=== PATIENT | male | born 1955 | race Caucasian/White ===

== ENCOUNTER → 2017-06-11 | Outpatient (CLI) | payer BC, SELFPAY | PROVIDERS: Family Provider Family Medicine; Visit Provider Family Medicine | DX: R07.89 Other chest pain (principal) | CPT/HCPCS: 71020; 71100 ==

== ENCOUNTER 2017-06-27 19:22 | Emergency (ER) | payer BC, SELFPAY ==
--- NOTE | 2017-06-27 09:41 | CT_ITS ---
CT angio chest HISTORY: ITS.REASON: RT SIDED CHEST PAIN, PNEUMONIA ORDERING PHYSICIAN: Sammy Dubose MD PATIENT AGE: 61 years TECHNIQUE: Helical acquisition obtained following the bolus administration of 75 mL of Isovue 370 followed by a saline bolus. Axial, sagittal, and coronal reformatted images are generated and reviewed. COMPARISON: None FINDINGS: PULMONARY ARTERIES:There are bilateral pulmonary emboli present involving the left lower lobe, branch emboli the left upper lobe, branch embolus in the upper lingular segment, right lower lobe embolus extending into several branches, small emboli in the posterior right upper lobe AORTA:No acute finding. No thoracic aortic aneurysm or dissection evident LUNGS:Mild bibasilar atelectasis with mild bronchial thickening centrally PLEURAL SPACES:No significant effusion. No evidence of pneumothorax. HEART:Unremarkable. Normal heart size. No significant pericardial effusion. MEDIASTINAL AND HILAR STRUCTURES:No mediastinal or hilar mass evident. No dominant adenopathy. BONY STRUCTURES:No acute bony abnormalities apparent LYMPH NODES:No enlarged lymph nodes evident UPPER ABDOMEN:Fatty changes of the liver IMPRESSION: 1. Bilateral multiple small pulmonary emboli 2. Mild bibasilar atelectasis
--- NOTE | 2017-06-27 09:42 | XR_ITS ---
XR chest 2V HISTORY: Right-sided chest pain ITS.REASON: RT SIDED CHEST PAIN, PNEUMONIA ORDERING PHYSICIAN: Sammy Dubose MD PATIENT AGE: 61 years COMPARISON: None available FINDINGS: The cardiomediastinal silhouette and pulmonary vascularity are within normal limits. No lobar consolidation or collapse. Minimal blunting of the right CP angle.. No acute bony abnormalities. IMPRESSION: Minimal blunting right CP angle otherwise negative chest
[2017-06-27 19:28] VITALS: BP 173/107; PULSE 78; RESP 24; TEMP 36.7; O2SAT 94; BMI 35.3
--- NOTE | 2017-06-27 20:40 | PC.NURSE ---
o2 turned off for room air sat
--- NOTE | 2017-06-27 21:00 | PC.NURSE ---
BP 141/82, HR 62, Resp 20, o2 sat 95% on room air
[2017-06-27 23:25] VITALS: BP 148/84; PULSE 84; RESP 20; TEMP 37.1; O2SAT 96
[2017-06-27 23:54] LABS: Lactic Acid 1.6 mmol/L (0.4-2.0)
[2017-06-28 00:01] LABS: Anion Gap 11.8 mEq/L (5-15); Blood Urea Nitrogen 18 mg/dL (7-18); Carbon Dioxide 28 mmol/L (21.0-32.0); Chloride 103 mmol/L (98-107); Creatinine,Serum 1.08 mg/dL (0.70-1.30); Estimated Glomerular Filt Rate > 60 ml/min (>60); GFR (African American) > 60 ML/MIN (>60); Glucose 150 mg/dL (74-106); Potassium 3.8 mmoL/L (3.5-5.1); Sodium 139 mmol/L (136-145); Troponin I 0.04 ng/ml (0.00-0.06)
[2017-06-28 01:04] LABS: Basophils % 0.5 % (0.1-2.0); Eosinophils % 1.7 % (0.1-12.0); Hematocrit 45.5 % (42.0-52.0); Lymphocytes # 1.5 K/mm3 (0.7-4.5); Lymphocytes % 16.8 K/mm3 (10-50); Mean Corpuscular HGB Conc 32.9 g/dL (31.8-35.4); Mean Corpuscular Hemoglobin 29.2 pg (27.0-31.2); Mean Corpuscular Volume 88.7 fl (80-94); Mean Platelet Volume 7.7 fl (7.4-10.4); Monocytes # 0.6 K/mm3 (0.1-1.0); Monocytes % 6.6 % (1.7-9.3); Neutrophils # 6.6 K/mm3 (1.8-7.8); Neutrophils % 73.5 % (37.0-80.0); Platelet Count 204 K/mm3 (142-424); Red Blood Count 5.13 M/mm3 (4.60-6.20); Red Cell Distribution Width 12.6 % (11.5-17.5)
[2017-06-28 01:05] LABS: Basophils # 0.1 K/mm3 (0-0.2); Eosinophils # 0.2 K/mm3 (0.0-0.4)
--- NOTE | 2017-06-29 12:01 | PC.NURSE ---
All late documentation entered was per down time procedure
[2017-06-29 15:25] LABS: Anti-Thrombin III Antigen 102 % (72-124); Protein S Antigen, Total 114 % (60-150)
[2017-06-30 10:10] LABS: Anti-Cardio Antibody IgM 11 MPL U/mL (0-12); Anti-Cardiolipin Antibody IgG 26 GPL U/mL (0-14); Anticardiolipin Ab,IgA,Qn 16 APL U/mL (0-11)
[2017-07-02 17:09] LABS: Protein C Antigen 92 % (60-150)
== END 2017-06-27 23:25 | disposition home or self-care (01) ==
LOC: ER 22:30
PROVIDERS: Emergency Medicine; Emergency Provider Emergency Medicine; Family Provider Family Medicine; PCP Family Medicine
DX: I26.99 Other pulmonary embolism without acute cor pulmonale (principal); J98.11 Atelectasis
CPT/HCPCS: 36415; 71046; 71275; 80048; 83605; 84484; 85025; 85301; 85302; 85305; 86147; 87040; 87275; 87276; 96372; 99282; 99284

== ENCOUNTER → 2017-06-28 13:32 | Outpatient (CLI) | payer BC, SELFPAY ==
--- NOTE | 2017-06-28 13:40 | NVE_ITS ---
Venous Exam Indications: 415.19 Other pulmonary embolism and infarction. IMPRESSIONS 1. There is no evidence of significant Reflux. 2. No evidence of deep or superficial vein thrombosis involving the right lower extremity and left lower extremity Complete lower extremity venous duplex evaluation. Doppler flow study including spectral analysis, color and adhikari scale imaging. Location: Vascular laboratory. Patient status: Outpatient. Tables: Venous flow and imaging: + +-------+ + Location Overall Flow properties + +-------+ + Right common femoral Patent Normal phasicity; spontaneous; normal augmentation; compressible + +-------+ + Right saphenofemoral junction Patent Compressible + +-------+ + Right profunda femoral Patent Compressible + +-------+ + Right femoral Patent Normal phasicity; spontaneous; normal augmentation; compressible; no reflux + +-------+ + Right greater saphenous Patent Normal phasicity; spontaneous; normal augmentation; compressible + +-------+ + Right popliteal Patent Normal phasicity; spontaneous; normal augmentation; compressible + +-------+ + Right posterior tibial Patent Compressible + +-------+ + Right peroneal Patent Compressible + +-------+ + Right gastrocnemius Patent Compressible + +-------+ + Right soleal Patent Compressible + +-------+ + Left common femoral Patent Normal phasicity; spontaneous; normal augmentation; compressible + +-------+ + Left saphenofemoral junction Patent Compressible + +-------+ + Left profunda femoral Patent Compressible + +-------+ + Left femoral Patent Normal phasicity; spontaneous; normal augmentation; compressible + +-------+ + Left greater saphenous Patent Normal phasicity; spontaneous; normal augmentation; compressible + +-------+ + Left popliteal Patent Normal phasicity; spontaneous; normal augmentation; compressible +--------
== END ==
PROVIDERS: PCP Family Medicine; Visit Provider Family Medicine
DX: I26.99 Other pulmonary embolism without acute cor pulmonale (principal)
CPT/HCPCS: 93970

== ENCOUNTER → 2019-06-19 11:00 | Outpatient (CLI) | payer BC, SELFPAY ==
[2019-06-19 11:35] VITALS: PULSE 54; PULSE 58
== END ==
PROVIDERS: PCP Family Medicine; Visit Provider Family Medicine
DX: R06.02 Shortness of breath (principal)
CPT/HCPCS: 94060; 94640

== ENCOUNTER → 2020-12-28 11:00 | Outpatient (CLI) | payer BC, SELFPAY ==
--- NOTE | 2020-12-28 11:20 | XR_ITS ---
PROCEDURE INFORMATION: Exam: XR Right Shoulder Exam date and time: 12/28/2020 11:20 AM Age: 65 years old Clinical indication: Pain; Shoulder; Right; Additional info: Pain in right shoulder TECHNIQUE: Imaging protocol: XR Right shoulder. Views: 2 or more views. COMPARISON: CR CXR2V XR chest 2V 06/27/2017 8:00 PM FINDINGS: Bones/joints: There is no evidence of acute fracture. There is no evidence of joint malalignment or dislocation. Soft tissues: There are no soft tissue masses or fluid collections. IMPRESSION: 1. No evidence of acute fracture. 2. No evidence of acute dislocation.
--- NOTE | 2020-12-28 11:20 | XR_ITS ---
PROCEDURE INFORMATION: Exam: XR Left Knee Exam date and time: 12/28/2020 11:20 AM Age: 65 years old Clinical indication: Pain; Knee; Left; Additional info: Pain in left knee TECHNIQUE: Imaging protocol: XR Left knee. Views: 3 views. COMPARISON: US CA venous doppler LE BI 06/28/2017 1:53 PM FINDINGS: Bones/joints: There is no evidence of acute fracture. There is no evidence of joint malalignment or dislocation. There are mild degenerative changes of the knee joint, predominantly involving the medial joint compartment. Soft tissues: There are no soft tissue masses or fluid collections. IMPRESSION: 1. No evidence of acute fracture. 2. No evidence of acute dislocation. 3. There are mild degenerative changes of the knee joint, predominantly involving the medial joint compartment.
--- NOTE | 2020-12-28 11:20 | XR_ITS ---
PROCEDURE INFORMATION: Exam: XR Right Knee Exam date and time: 12/28/2020 11:20 AM Age: 65 years old Clinical indication: Pain; Knee; Right; Additional info: Pain in right knee TECHNIQUE: Imaging protocol: XR Right knee. Views: 3 views. COMPARISON: US CA venous doppler LE BI 06/28/2017 1:53 PM FINDINGS: Bones/joints: There are mild degenerative changes of the knee joint, predominantly involving the medial joint compartment. There is no evidence of acute fracture. There is no evidence of joint malalignment or dislocation. Soft tissues: There are no soft tissue masses or fluid collections. IMPRESSION: 1. There are mild degenerative changes of the knee joint, predominantly involving the medial joint compartment. 2. No evidence of acute fracture. 3. No evidence of acute dislocation.
--- NOTE | 2020-12-28 11:21 | XR_ITS ---
PROCEDURE INFORMATION: Exam: XR Left Shoulder Exam date and time: 12/28/2020 11:21 AM Age: 65 years old Clinical indication: Pain; Shoulder; Left; Additional info: Pain in left shoulder TECHNIQUE: Imaging protocol: XR Left shoulder. Views: 2 or more views. COMPARISON: CR CXR2V XR chest 2V 06/27/2017 8:00 PM FINDINGS: Bones/joints: There is no evidence of acute fracture. There is no evidence of joint malalignment or dislocation. Soft tissues: There are no soft tissue masses or fluid collections. IMPRESSION: 1. No evidence of acute fracture. 2. No evidence of acute dislocation.
== END ==
PROVIDERS: PCP Family Medicine; Visit Provider Family Medicine
DX: M25.562 Pain in left knee (principal); M25.561 Pain in right knee; M25.512 Pain in left shoulder; M25.511 Pain in right shoulder
CPT/HCPCS: 73030; 73562

== ENCOUNTER → 2022-02-17 13:13 | Outpatient (CLI) | payer BC, SELFPAY ==
--- NOTE | 2022-02-17 13:19 | XR_ITS ---
FINAL REPORT CLINICAL HISTORY: CAUTE RIGHT SIDED LOW BACK PAIN WITHOUT SCIATICA FINDINGS: LUMBAR SPINE Five views demonstrate no acute fracture. There are moderate degenerative changes with small osteophytes. Note is made of vascular calcification. There is no malalignment. IMPRESSION: Moderate degenerative changes with no acute process. Reviewed, Interpreted and Dictated by Raphael Pineda III, MD Transcribed by Alejandra Bolanos Authenticated and [facility]
== END ==
PROVIDERS: PCP Family Medicine; Visit Provider Family Medicine
DX: M54.50 Low back pain, unspecified (principal)
CPT/HCPCS: 72110

== ENCOUNTER → 2022-11-13 09:21 | Outpatient (CLI) | payer BC, MEDICARE, SELFPAY | PROVIDERS: PCP Family Medicine; Visit Provider Family Medicine | DX: R06.02 Shortness of breath (principal) | CPT/HCPCS: 93306 ==

== ENCOUNTER 2023-10-08 10:47 | Emergency (ER) | payer BC, MEDICARE, SELFPAY ==
[2023-10-08] VITALS (7 sets, daily range): BP systolic 109–134; BP diastolic 55–73; PULSE 80–89; RESP 18; TEMP 36.9–37.1; O2SAT 94–97; BMI 38.2
--- NOTE | 2023-10-08 10:57 | CT_ITS ---
FINAL REPORT TECHNIQUE: After the administration of oral and intravenous contrast, axial images were obtained through the abdomen and pelvis by computed tomography. The study was performed with techniques to keep radiation dose as low as reasonably achievable, (ALARA). Individual dose reduction techniques using automated exposure control or adjustment of mA and/or kV according to the patient's size were employed. CLINICAL HISTORY: vomiting, abd pain COMPARISON: None FINDINGS: Abdomen: The lung bases are clear. There is moderate fatty infiltration of the liver present. The gallbladder is unremarkable in appearance. The spleen, pancreas, and adrenals appear unremarkable. The aorta is normal in caliber. There is no free fluid or adenopathy. There are benign-appearing cysts in the kidneys bilaterally measuring up to 4 cm in size. Pelvis: The appendix is not identified. The urinary bladder is decompressed. There is no free fluid or adenopathy. There is a moderate amount of stool present in the colon. There is marked degenerative disc disease present in the L4-5 and L5-S1 levels seen best on sagittal images, with bilateral severe neural foraminal narrowing. IMPRESSION: Moderate fatty infiltration of the liver. Benign-appearing cysts in the kidneys bilaterally measuring up to 4 cm in size. Moderate stool present in the colon. Reviewed, Interpreted and Dictated by Ronnie Stringer MD Transcribed by Siobhan Caballero Authenticated and [facility]
--- NOTE | 2023-10-08 10:59 | ED_ITS ---
Discharge Plan Disposition Patient Disposition: Home, Self-Care Condition: Good Prescriptions Prescriptions: New ondansetron 4 mg tablet,disintegrating 4 mg PO Q8H PRN (Reason: nausea and vomiting) 5 Days Qty: 20 0RF No Action metoprolol tartrate 50 mg tablet 50 mg PO BID Eliquis 5 mg tablet 5 mg PO BID lisinopril 40 mg tablet 40 mg PO DAILY aspirin 81 mg tablet,chewable 81 mg PO DAILY omega 0-rec-gyq-fish oil [Fish Oil] 60-90-500 mg capsule 1 cap PO DAILY ascorbic acid (vitamin C) 100 mg tablet 100 mg PO DAILY famotidine [Pepcid AC] 20 mg tablet 20 mg PO BID Referrals Follow up/Referrals: Justin Ferrer MD [Primary Care Provider] - See instructions Activity Restrictions/Add. Instructions Additional Instructions/Restrictions: You were evaluated in the ER. You are appropriate for discharge at this time. Continue taking your home medications as previously prescribed. Take the newly prescribed Zofran if needed for nausea and vomiting. Drink plenty of fluid. Make an appointment with your primary care physician for reevaluation in 2 to 3 days. Return to the ER with any new, worsening, or otherwise concerning symptoms. Clinical Impressions Clinical Impression: Vomiting, Acidosis, lactic Instructions Patient Instructions: DI for Diarrhea and Traveler's Diarrhea -- Adult, DI for Diarrhea and Traveler's Diarrhea -- Child, DI for Nausea -- Adult, DI for Nausea -- Child Discharge ED Provider: Isabel Hinkle General Adult HPI General Chief complaint: Nausea/Vomiting/Diarrhea Stated complaint: vomiting Time Seen by Provider: 10/08/23 10:49 History of Present Illness HPI narrative: 67-year-old male with history of COPD, stroke, hypertension presents to the ER with concerns of vomiting. contributes to history. She reports that patient has had a few episodes of emesis since 6:30 AM. Family describes them as bile but brought the bucket of emesis with him and it is yellow in color. Patient states he only has vague abdominal discomfort before he actually vomits. Otherwise he is not having any abdominal pain. He denies any chest pain, difficulty breathing, he states he has not felt like he had a fever or chills. Patient denies alcohol or illicit drug use. Former smoker. Patient has not taken any medications for his symptoms this morning. Related Data Home Medications Medication Instructions Recorded Confirmed apixaban 5 mg tablet (Eliquis) 5 mg PO BID 03/15/18 ascorbic acid (vitamin C) 100 mg 100 mg PO DAILY 03/15/18 tablet aspirin 81 mg chewable tablet 81 mg PO DAILY 03/15/18 famotidine 20 mg tablet (Pepcid AC) 20 mg PO BID 03/15/18 lisinopril 40 mg tablet 40 mg PO DAILY 03/15/18 metoprolol tartrate 50 mg tablet 50 mg PO BID 03/15/18 omega 8-nqf-moj-fish oil 60 mg-90 1 cap PO DAILY 03/15/18 mg-500 mg capsule (Fish Oil) Previous Rx's Medication Instructions Recorded ondansetron 4 mg disintegrating 4 mg PO Q8H PRN nausea and 10/08/23 tablet vomiting 5 days #20 tabs Allergies Allergy/AdvReac Type Severity Reaction Status Date / Time No Known Allergies Allergy Unverified 10/08/23 11:00 [facility] Disclaimer: The information contained in this section may have been updated after the patient was seen, as this information can be updated by other users. Social History Smoking Status: Former smoker tobacco type: cigarettes alcohol intake: never current occupational status: employed Travel in the last 8 weeks: None caffeine: No ROS Obtained: Yes All systems reviewed & no additional complaints except as documented Constitutional Constitutional: Denies chills, Denies fever(s) and Denies headache(s) Eyes Eyes: Denies change in vision ENT Ears, Nose, Mouth, and Throat: Denies dizziness, Denies headache(s), Denies nasal congestion and Denies sore throat Cardiovascular Cardiovascular: Denies chest pain, Denies dyspnea and Denies leg edema Respiratory Respiratory: Denies cough and Denies dyspnea Gastrointestinal Gastrointestingal: Reports nausea and vomiting; Denies abdominal pain, constipation or diarrhea Genitourinary Male Genitourinary: Denies difficulty urinating Musculoskeletal Musculoskeletal: Denies arthralgias, Denies myalgias, Denies numbness and Denies tingling Integumentary/Breasts Skin/Breast: Denies change in pigmentation Neurologic Neurologic: Denies dizziness, Denies headache(s), Denies numbness and Denies tingling Physical Exam General General appearance: alert and in no apparent distress Head Head exam: atraumatic and normocephalic Eye Eye exam: Present PERRL and EOMI ENT ENT exam: Present mucous membranes moist Neck Neck exam: Present normal inspection and full ROM Chest Chest inspection: Present symmetric chest wall rise Respiratory Respiratory exam: Present normal lung sounds bilaterally; Absent respiratory distress, wheezes or stridor Cardiovascular Cardiovascular exam: Present regular rate and normal rhythm Abdominal Exam Abdominal exam: Present soft and tenderness (Vague epigastric discomfort with palpation); Absent distention, guarding or rebound Extremities Exam Extremities exam: Present full ROM Neurological Exam Neurological exam: Present alert and oriented X3; Absent motor sensory deficit Psychiatric Psychiatric exam: Present normal affect and normal mood Skin Skin exam: Present warm and dry Medical Decision Making Roger Inquiry Pt receiving controlled substance: No Vital Signs: 10/08/23 10:48 10/08/23 11:00 10/08/23 11:53 Temperature 98.4 F Temperature Source Oral Pulse Rate 85 89 Pulse Rate [Right Radial] 89 Respiratory Rate 18 Blood Pressure 109/60 L 134/65 Blood Pressure [Right Arm] 127/73 Blood Pressure Mean Blood Pressure Mean [Right Arm] 91 Blood Pressure Source [Right Arm] Automatic Cuff Blood Pressure Position [Right Arm] Sitting 02 Sat by Pulse Oximetry 97 97 95 Oxygen Delivery Method Room Air 10/08/23 12:01 10/08/23 12:30 10/08/23 13:00 Temperature Temperature Source Pulse Rate 80 80 81 Pulse Rate [Right Radial] Respiratory Rate Blood Pressure 120/66 114/55 L 118/65 Blood Pressure [Right Arm] Blood Pressure Mean 76 Blood Pressure Mean [Right Arm] Blood Pressure Source [Right Arm] Blood Pressure Position [Right Arm] 02 Sat by Pulse Oximetry 95 95 94 L Oxygen Delivery Method Lab Data Lab Results 10/08/23 11:05: WBC 13.4 H, RBC 4.76, Hgb 14.3, Hct 43.8, MCV 92.0, MCH 30.1, MCHC 32.7, RDW 13.2, Plt Count 236, MPV 8.1, Neut % (Auto) 92.7 H, Lymph % (Auto) 3.1 L, [place] % (Auto) 2.9, Eos % (Auto) 1.1, Baso % (Auto) 0.2, Neut # (Auto) 12.5 H, Lymph # (Auto) 0.4 L, [place] # (Auto) 0.4, Eos # (Auto) 0.2, Baso # (Auto) 0.0, Total Counted 100, Neutrophils % (Manual) 94 H, Lymphocytes % (Manual) 3 L, Monocytes % (Manual) 3, Platelet Estimate Normal, RBC Morphology Normal, Sodium 140, Potassium 4.0, Chloride 105, Carbon Dioxide 27, Anion Gap 12.0, BUN 26 H, Creatinine 1.10, Estimated Creat Clear 118, Estimated GFR 66, Est GFR ( Amer) 80, Glucose 136 H, Lactate 2.6 H, Calcium 9.1, Total Bilirubin 1.0, AST 38, ALT 43, Alkaline Phosphatase 79, Troponin I < 0.01, Total Protein 7.2, Albumin 4.2, Globulin 3.0, Albumin/Globulin Ratio 1.4 10/08/23 11:05 10/08/23 11:05 Orders (Tests/Meds): ED MEDICATIONS Discontinued Medications Generic Name Dose Route Start Last Admin Trade Name Freq PRN Reason Stop Dose Admin Lactated Ringer's 1,000 mls @ 999 mls/hr 10/08/23 10:56 10/08/23 11:00 Lactated Ringer's 1000 Ml Bag IV 10/08/23 11:56 999 mls/hr .Q1H1M ONE Administration Iopamidol 75 ml 10/08/23 11:50 10/08/23 11:51 Iopamidol-370 (76%);100ml Bottle IV 10/08/23 11:51 75 ml ONCE ONE Administration Ondansetron HCl 4 mg 10/08/23 10:56 10/08/23 11:00 Ondansetron 4mg/2ml Vial IV 10/08/23 10:57 4 mg ONCE ONE Administration Sodium Chloride 10 ml 10/08/23 11:50 10/08/23 11:51 Sodium Chloride 0.9% 10ml Syr (Rad Only) IV 10/08/23 11:51 10 ml ONCE ONE Administration ORDERS Category Date Time Status CT abdomen pelvis w con Stat Cat Scan 10/08/23 10:57 Completed CBC w/Auto Diff [Complete Blood Count Auto Diff] Stat Lab 10/08/23 11:05 Completed CMP [Comprehensive Metabolic Panel] Stat Lab 10/08/23 11:05 Completed Lactic Acid Stat Lab 10/08/23 11:05 Completed Trop I [Troponin I] Stat Lab 10/08/23 11:05 Completed Troponin I Q3H Lab 10/08/23 14:00 Ordered Troponin I Q3H Lab 10/08/23 17:00 Ordered Medical Decision Narrative: In summary, this 67year old male presents to the emergency department today with vomiting. On initial evaluation patient is hemodynamically stable, afebrile, GCS 15, no focal neurologic deficits, cardiopulmonary exam reassuring, abdomen is soft, vague epigastric discomfort with palpation but no true tenderness. Differential diagnosis includes but is not limited to viral syndrome, bowel obstruction, electrolyte abnormality, dehydration, lactic acidosis, leukocytosis, anemia, also considered ACS though I have lower concern for this. Based on these concerns, I ordered basic labs, CT imaging of the abdomen/pelvis. ECG personally interpreted demonstrates normal sinus rhythm, rate 78, normal axis, normal intervals, no STEMI. Patient received IV fluids, Zofran for treatment. Labs personally reviewed demonstrate mild leukocytosis with WBC 13.4, no anemia, CMP with normal sodium, potassium, chloride, calcium, mild prerenal azotemia for which patient already received IV fluids, initial lactate slightly elevated at 2.6. Repeat [] CT abdomen pelvis personally interpreted does not demonstrate any findings of bowel obstruction or other acute intra-abdominal pathology. See radiology read for final interpretation. Patient was notified of incidental findings. On reassessment, patient has had dramatic improvement of symptoms. He is able to tolerate oral intake. He is appropriate for discharge at this time. I prescribed Zofran for outpatient management. Patient was given instructions on symptomatic management, follow up instructions, and return precautions for the emergency department. Patient indicated understanding and was discharged in stable condition. Critical Care Critical Care Time Critical Care Time: No
[2023-10-08] MEDS: ONDANSETRON 4MG/2ML VIAL 4 MG IV (11:00)
[2023-10-08] MEDS: LACTATED RINGERS 1000ML 1,000 ML 999 ML IV (11:00)
[2023-10-08 11:21] LABS: Basophils % 0.2 % (0.1-2.0); Eosinophils # 0.2 K/mm3 (0.0-0.4); Eosinophils % 1.1 % (0.1-12.0); Hematocrit 43.8 % (42.0-52.0); Hemoglobin 14.3 g/dL (14.1-18.0); Lymphocytes # 0.4 K/mm3 (0.7-4.5); Lymphocytes % 3.1 % (10-50); Mean Corpuscular HGB Conc 32.7 g/dL (31.8-35.4); Mean Corpuscular Hemoglobin 30.1 pg (27.0-31.2); Mean Platelet Volume 8.1 fl (7.4-10.4); Monocytes # 0.4 K/mm3 (0.1-1.0); Monocytes % 2.9 % (1.7-9.3); Neutrophils # 12.5 K/mm3 (1.8-7.8); Neutrophils % 92.7 % (37.0-80.0); Platelet Count 236 K/mm3 (142-424); Red Blood Count 4.76 M/mm3 (4.60-6.20); Red Cell Distribution Width 13.2 % (11.5-17.5); White Blood Count 13.4 K/mm3 (4.8-10.8)
[2023-10-08 11:24] LABS: MANUAL DIFFERENTIAL MANUAL DIFFERENTIAL (MANUAL DIFF)
--- NOTE | 2023-10-08 11:24 | ECG_ITS ---
APPROVED REPORT Exam: Resting ECG HR:78 bpm ECG Measurements Heart Rate 78 AXES MI 205 P 42 QRSd 82 QRS 2 QT 377 T -13 QTc 411 Conclusion SINUS RHYTHM NONSPECIFIC T-WAVE ABNORMALITY BORDERLINE ECG Electronically signed by : DUKE CHRISTENSEN, 10/10/2023 15:58:41
[2023-10-08 11:33] LABS: Alanine Aminotransferase 43 U/L (12-78); Albumin Level 4.2 g/dl (3.5-5.0); Albumin/Globulin Ratio 1.4 (1.1-1.8); Alkaline Phosphatase 79 U/L (38-126); Aspartate Amino Transferase 38 U/L (17-59); Blood Urea Nitrogen 26 mg/dl (9-20); Calcium 9.1 mg/dl (8.4-10.2); Carbon Dioxide 27 mmol/L (22.0-30.0); Chloride 105 mmol/L (98-107); Creatinine Clearance Estimated 118 mL/min (50-200); Estimated Glomerular Filt Rate 66 ml/min (>60); GFR (African American) 80 ML/MIN (>60); Glucose 136 mg/dl (74-100); Lactic Acid 2.6 mmol/L (0.7-2.1); Sodium 140 mmol/L (136-145); Total Protein,Serum 7.2 g/dl (6.3-8.2)
[2023-10-08 11:45] LABS: Lymphocytes % 3 % (10-50); Monocytes % 3 % (2-9); Neutrophils % 94 % (42-76); Total Cells Counted 100
[2023-10-08 11:46] LABS: Platelet Estimate Normal; RBC Morphology Normal
[2023-10-08] MEDS: SODIUM CHLORIDE 0.9% 10ML SYR (RAD ONLY) 10 ML IV (11:51)
[2023-10-08] MEDS: IOPAMIDOL-370 (76%);100ML BOTTLE 75 ML IV (11:51)
[2023-10-08 12:04] LABS: Troponin I < 0.01 ng/ml (0.00-0.034)
--- NOTE | 2023-10-08 13:14 | PC.NURSE ---
updated pt and family about status of stay. pt states he is feeling better. Radiology sent report of abd/pelvic ct, report given to
--- NOTE | 2023-10-08 14:24 | PC.NURSE ---
called for time left on lactic, lab states that it will be 10 minutes
[2023-10-08 14:41] LABS: Lactic Acid 2.5 mmol/L (0.7-2.1)
[2023-10-08 15:11] LABS: Reflex Lactic Add Lactic Reflex
== END 2023-10-08 14:40 | disposition home or self-care (01) ==
PROVIDERS: Emergency Provider Emergency Medicine; PCP Family Medicine
DX: K52.9 Noninfective gastroenteritis and colitis, unspecified (principal); R11.2 Nausea with vomiting, unspecified; R74.02 Elevation of levels of lactic acid dehydrogenase [LDH]; Z87.891 Personal history of nicotine dependence
CPT/HCPCS: 74177; 80053; 83605; 84484; 85007; 85025; 93005; 96361; 96374; 99284; J2405; Q9967

== ENCOUNTER → 2024-01-21 08:39 | Outpatient (CLI) | payer MEDICARE, SELFPAY | LOC: SL 08:41 | PROVIDERS: PCP Family Medicine; Visit Provider Family Medicine | DX: G47.33 Obstructive sleep apnea (adult) (pediatric) (principal); G47.36 Sleep related hypoventilation in conditions classified elsewhere | CPT/HCPCS: G0399 ==